=== PATIENT | male | born 1980 | race Caucasian/White ===

== ENCOUNTER → 2021-03-29 07:50 | Outpatient (BNVA) | payer SELFPAY | PROVIDERS: Visit Provider Internal Medicine | DX: Z02.79 Encounter for issue of other medical certificate (principal) ==

== ENCOUNTER → 2025-05-17 10:00 | Outpatient (BNVA) | payer SELFPAY | PROVIDERS: Visit Provider Registered Nurse | DX: Z02.79 Encounter for issue of other medical certificate (principal) ==